=== PATIENT | male | born 1940 | race Caucasian/White ===

== ENCOUNTER 2016-04-11 09:34 | Outpatient (CLI) | payer MEDICARE, OTHER | END 2016-04-11 09:35 | disposition home or self-care (01) | DX: I10 Essential (primary) hypertension (principal) ==

== ENCOUNTER 2020-06-27 09:50 | Outpatient (CLI) | payer MEDICARE | END 2020-06-27 09:51 | disposition short-term general hospital (02) | LOC: EMS 09:50 | DX: R55 Syncope and collapse (principal) | CPT/HCPCS: A0425; A0429 ==

== ENCOUNTER 2022-10-17 12:04 | Emergency (ER) | payer MEDICARE ==
--- NOTE | 2022-10-17 12:25 | ED Physician Documentation ---
History of Present Illness - Stated complaint Stated Complaint: ALOC - Chief complaint Chief Complaint: Resp - Additonal information Additional information: 81-year-old male presents to the emergency department for evaluation of progressive weakness, subjective fevers at home. He states that over the last 2 to 3 days he has been feeling generally weaker and having a productive cough. Reports a history of bronchiectasis. Currently being followed by behavior therapist. He was started on antibiotics 2 days ago for concerns of worsening bronchiectasis. He denies chest pain. He has vomited once but not had any diarrhea. No abdominal pain. No dysuria. Past medical history: Atrial fibrillation status post watchman in August 2019, hypertension, bronchiectasis, blindness Meds: Diltiazem ER 120 daily, Lorenza statin daily, flecainide 150 mg daily, Plavix 75 mg daily, Symbicort 2 puffs twice daily, cefuroxime 500 mg p.o. twice daily for 10 days (started 10/16/2022.) box toe stitcher: Dr. Junior ([facility]) Butt Presser: Dez Mann ([facility]) Review of Systems Constitutional: reports: Fever, Fatigue Cardiac: denies: Chest pain / pressure, Palpitations Respiratory: reports: Dyspnea, Cough. denies: Hemoptysis, Wheezing GI: reports: Reviewed and negative : reports: Reviewed and negative Skin: reports: Reviewed and negative Musculoskeletal: reports: Reviewed and negative Neurologic: reports: Generalized weakness. denies: Syncope, Seizure, Headache, Head injury PD PAST MEDICAL HISTORY - Present Medications Home Medications: Ambulatory Orders Medication Instructions Recorded Confirmed Budesonide/Formoterol Fumarate 10.2 gm IH 10/17/22 [Symbicort 160-4.5 Mcg Inhaler] Cefuroxime Axetil [Cefuroxime] 500 mg PO 10/17/22 Celecoxib [Celebrex] 200 mg PO 10/17/22 Clopidogrel Bisulfate [Plavix] 75 mg PO 10/17/22 Flecainide [Tambocar] 150 mg PO Q12H 10/17/22 10/17/22 Rosuvastatin Calcium [Crestor] 5 mg PO 10/17/22 dilTIAZem HCL [Diltiazem 24Hr ER 120 mg PO 10/17/22 (Xr)] - Allergies Allergies/Adverse Reactions: Allergies Allergy/AdvReac Type Severity Reaction Status Date / Time No Known Drug Allergies Allergy Verified 10/17/22 12:18 PD ED PE NORMAL - General General: Alert and oriented X 3, No acute distress, Well developed/nourished (Appears diaphoretic) - HEENT HEENT: Atraumatic - Cardiac Cardiac: RRR, No murmur - Respiratory Respiratory: No respiratory distress. No: Clear bilaterally (Diffuse scattered rhonchi in the posterior lung donato. Room air saturations are 90%. Placed to 2 L nasal cannula with resultant rise in oxygen to 97%. No tachypnea. Appears unlabored.) - Abdomen Abdomen: Normal bowel sounds, Soft - Back Back: No CVA TTP - Derm Derm: Normal color, Warm and dry, No rash - Extremities Extremities: No deformity - Neuro Neuro: Alert and oriented X 3, prop setter 2-12 intact Eye Opening: Spontaneous Motor: Obeys Commands Verbal: Oriented GCS Score: 15 Results - Vitals Vitals: Vital Signs - 24 hr 10/17/22 10/17/22 10/17/22 12:18 13:07 13:36 Temperature 37.8 C Heart Rate 100 91 91 Respiratory 18 25 H 19 Rate Blood Pressure 128/74 110/68 111/74 O2 Saturation 90 L 91 L 94 10/17/22 14:08 Temperature 99.1 C H Heart Rate 90 Respiratory 22 Rate Blood Pressure 117/76 O2 Saturation 95 Oxygen O2 Source Room air - EKG (time done) 1212 EKG releavant findings:: EKG personally interpreted by author of this note. Relevant findings are: Rate: Rate (enter#) (99) Rhythm: NSR [place]: Other (LAFB) QRS: Normal Ischemia: Non specific changes Compare to prior EKG: Old EKG unavailable Computer interpretation: Agree with computer - Labs Labs: Laboratory Tests 10/17/22 10/17/22 10/17/22 12:31 12:33 12:33 WBC 15.9 H RBC 3.91 L Hgb 10.8 L Hct 33.1 L MCV 84.7 MCH 27.6 MCHC 32.6 RDW 13.8 Plt Count 242 MPV 9.8 Neut # (Auto) 14.8 H Lymph # (Auto) 0.3 L [place] # (Auto) 0.5 Eos # (Auto) 0.0 Baso # (Auto) 0.1 Absolute Nucleated RBC 0.00 Nucleated RBC % 0.0 Bld Gas Analysis Time Sample Site ABG pH ABG pCO2 ABG pO2 ABG HCO3 ABG Total CO2 ABG O2 Saturation ABG Base Excess Klaus Test Room Air Sodium 138 Potassium 3.9 Chloride 107 Carbon Dioxide 22 Anion Gap 9.0 BUN 25 H Creatinine 1.4 H Estimated GFR (MDRD) 49 L Glucose 107 H Lactic Acid Calcium 8.8 Total Bilirubin 0.8 AST 18 ALT 17 Alkaline Phosphatase 82 Total Protein 7.2 Albumin 3.5 Globulin 3.7 Albumin/Globulin Ratio 0.9 L Nasal Adenovirus (PCR) NOT DETECTED Nasal B. parapertussis DNA (PCR) NOT DETECTED Nasal Coronavir 229E PCR NOT DETECTED Nasal Coronavir HKU1 PCR NOT DETECTED Nasal Coronavir NL63 PCR NOT DETECTED Nasal Coronavir OC43 PCR NOT DETECTED Nasal Enterovir/Rhinovir PCR NOT DETECTED Nasal Influenza B PCR NOT DETECTED Nasal Influenza A PCR NOT DETECTED Nasal Parainfluen 1 PCR NOT DETECTED Nasal Parainfluen 2 PCR NOT DETECTED Nasal Parainfluen 3 PCR NOT DETECTED Nasal Parainfluen 4 PCR NOT DETECTED Nasal RSV (PCR) NOT DETECTED Nasal B.pertussis DNA PCR NOT DETECTED Nasal C.pneumoniae (PCR) NOT DETECTED Chance Human Metapneumo PCR NOT DETECTED Nasal M.pneumoniae (PCR) NOT DETECTED Nasal SARS-CoV-2 (PCR) NOT DETECTED 10/17/22 10/17/22 12:33 13:40 WBC RBC Hgb Hct MCV MCH MCHC RDW Plt Count MPV Neut # (Auto) Lymph # (Auto) [place] # (Auto) Eos # (Auto) Baso # (Auto) Absolute Nucleated RBC Nucleated RBC % Bld Gas Analysis Time 1340 Sample Site RIGHT RADIAL ABG pH 7.50 H ABG pCO2 26 L ABG pO2 98 ABG HCO3 19.6 L ABG Total CO2 20.4 L ABG O2 Saturation 98 ABG Base Excess -2.5 L Klaus Test POSITIVE Room Air YES Sodium Potassium Chloride Carbon Dioxide Anion Gap BUN Creatinine Estimated GFR (MDRD) Glucose Lactic Acid 1.2 Calcium Total Bilirubin AST ALT Alkaline Phosphatase Total Protein Albumin Globulin Albumin/Globulin Ratio Nasal Adenovirus (PCR) Nasal B. parapertussis DNA (PCR) Nasal Coronavir 229E PCR Nasal Coronavir HKU1 PCR Nasal Coronavir NL63 PCR Nasal Coronavir OC43 PCR Nasal Enterovir/Rhinovir PCR Nasal Influenza B PCR Nasal Influenza A PCR Nasal Parainfluen 1 PCR Nasal Parainfluen 2 PCR Nasal Parainfluen 3 PCR Nasal Parainfluen 4 PCR Nasal RSV (PCR) Nasal B.pertussis DNA PCR Nasal C.pneumoniae (PCR) Chance Human Metapneumo PCR Nasal M.pneumoniae (PCR) Nasal SARS-CoV-2 (PCR) - Rads (name of study) cxr Relevant Findings:: Final report received (Diffuse interstitial prominence with patchy ill-defined airspace opacities of the left mid and lower lung zones and right lung base. Findings may represent infectious and/or inflammatory process. No focal consolidation seen) CT chest Relevant Findings:: Final report received (Moderate left greater than right bronchiectasis involving bilateral lower lobes and inferior left lower lobe. The changes appear to be somewhat tree-in-bud distribution are likely infectious or inflammatory. Findings may represent sequelae of chronic aspiration.) PD Medical Decision Making - ED course Complexity details: reviewed results, re-evaluated patient, d/w patient, d/w family ED course: 81-year-old male who has a history of bronchiectasis presents to the emergency department after the family found him at home with a fever, altered mental status and difficulty breathing. The patient is followed by pulmonology at [facility] and recently i.e. yesterday started on cefpodoxime for concerns of worsening bronchiectasis. He reports that he does daily pulmonary toileting with pulmonary drainage. Here in the emergency department on presentation he was alert and well- appearing. He is oriented to person place time. He is blind. Vital signs were without fever, tachycardia or hypotension. I did obtain CBC, electrolytes blood cultures x2 and a respiratory PCR. Per my interpretation there is some moderate leukocytosis White blood cell count of 16,000. No worrisome anemia. Electrolytes show preserved renal function though he is mildly dehydrated with a BUN of 24 and a creatinine of 1.4. For this the patient was administered 1 L of IV fluids here in the ER. Respiratory PCR panel was Negative. Chest x-ray did suggest left lower lobe infiltrates as interpreted by the radiologist. However patient required no supplemental oxygenation and was not hypoxemic. An ABG was also within normal parameters. Subsequently a CT of the chest was completed which does show bronchiectasis involving the lower lobes with left greater than right. I discussed with the patient and his and daughter at the bedside the etiology of history and symptoms. Given chronic bronchiectasis without the requirement of supplemental oxygenation we discussed the possibility of observation admission versus discharge home. The family elected to be discharged home if the patient was able to ambulate easily which occurred here in the ER. I discussed with him however that he is at higher risk for complications given the bronchiectasis as well as his age and should his fevers fail to improve over the next several days, he have any respiratory difficulty or any other emergent concerns he would return immediately to the ER. This time he is discharged home. He will continue on the cefpodoxime started by his behavior therapist. A report of the CT was given to the family to follow-up with pulmonary. Departure - Departure Disposition: , Self Care Clinical Impression: Bronchiectasis Qualifiers: Bronchiectasis type: with acute exacerbation Qualified Code(s): J47.1 - Bronchiectasis with (acute) exacerbation Condition: Stable Comments: Alex you are seen today in the emergency department because at home you developed a high fever and then Stopped breathing. Your labs today showed a mild white blood cell count elevation of 16,000. Here in the emergency department your oxygen levels have been normal and your ABG showed no worrisome hypoxemia. A CT of the chest did show bronchiectasis involving the left lung greater than the right. At this time you are stable for discharge from the emergency department. Please continue the cefpodoxime started by your behavior therapist. If you find that over the next several days your symptoms or not improving, you have fevers that persist daily for 4 more days, you have any difficulty breathing or fainting episodes you do need to return immediately to the ER. I recommend that you continue your pulmonary toileting at home. Please discuss your CT results with your behavior therapist. They may elect to repeat imaging in several months to ensure that the imaging has improved.
--- NOTE | 2022-10-17 12:38 | XRAY Report ---
PROCEDURE: Chest 1 View X-Ray INDICATIONS: Sepsis TECHNIQUE: One view of the chest was acquired. COMPARISON: None. FINDINGS: Surgical changes and devices: None. Lungs and pleura: Diffuse interstitial prominence more pronounced on the left. Ill-defined airspace opacities of the left mid and lower lung zones and right lung base. No focal consolidation. No pneumo thorax. No substantial pleural effusion. Mediastinum: Mediastinal contours appear normal. Heart size is normal. Bones and chest wall: No suspicious bony lesions. Overlying soft tissues appear unremarkable. IMPRESSION: Diffuse interstitial prominence with patchy ill-defined airspace opacities of the left mid and lower lung zones and right lung base. Findings may represent an infectious or inflammatory process. No foca l consolidation seen. Reviewed by: Roberto De La Rosa MD on 10/17/2022 11:37 AM GIANFRANCO Approved by: Roberto De La Rosa MD on 10/17/2022 11:37 AM GIANFRANCO Station ID: [id number]
[2022-10-17 12:40] LABS: BASOPHILS # (AUTO) 0.1 10^3/uL (0.0-0.1); BASOPHILS % (AUTO) 0.4 %; EOSINOPHILS % (AUTO) 0.1 %; HCT - HEMATOCRIT 33.1 % (42.0-52.0); HGB - HEMOGLOBIN 10.8 g/dL (14.0-18.0); LYMPHOCYTES # (AUTO) 0.3 10^3/uL (1.5-3.5); LYMPHOCYTES % (AUTO) 1.9 %; MEAN CORPUSCULAR HEMOGLOBIN 27.6 pg (27.0-31.0); MEAN CORPUSCULAR HGB CONC 32.6 g/dL (32.0-36.0); MEAN CORPUSCULAR VOLUME 84.7 fL (80.0-94.0); MEAN PLATELET VOLUME 9.8 fL (7.4-11.4); MONOCYTES # (AUTO) 0.5 10^3/uL (0.0-1.0); MONOCYTES % (AUTO) 3.2 %; NEUTROPHILS # (AUTO) 14.8 10^3/uL (1.5-6.6); NEUTROPHILS % (AUTO) 93.5 %; PLT - PLATELET COUNT 242 10^3/uL (130-450); RED BLOOD COUNT 3.91 10^6/uL (4.70-6.10); RED CELL DISTRIBUTION WIDTH 13.8 % (12.0-15.0); WHITE BLOOD COUNT 15.9 x10^3/uL (4.8-10.8)
[2022-10-17 12:51] LABS: ALBUMIN 3.5 g/dL (3.2-5.5); ALBUMIN/GLOBULIN RATIO 0.9 (1.0-2.2); BILIRUBIN,TOTAL 0.8 mg/dL (0.2-1.0); CALCIUM 8.8 mg/dL (8.5-10.3); CREATININE 1.4 mg/dL (0.6-1.2); POTASSIUM 3.9 mmol/L (3.5-5.0); TOTAL PROTEIN 7.2 g/dL (6.7-8.2)
[2022-10-17] MEDS ORDERED: ONDANSETRON 4 MG/2 ML VIAL IVP STA (13:01)
[2022-10-17] MEDS ORDERED: SODIUM CHLORIDE 0.9% 1,000 ML IV STA (13:03)
[2022-10-17] MEDS ORDERED: iohexoL-300 100 ML VIAL ONE (13:14)
[2022-10-17 13:34] LABS: B. PARAPERTUSSIS- RESP PCR PAN NOT DETECTED; B. PERTUSSIS- RESP PCR PANEL NOT DETECTED; C. PNEUMONIAE- RESP PCR PANEL NOT DETECTED; CORONAVIRUS 229E-RESP PCR NOT DETECTED; CORONAVIRUS HKU1-RESP PCR NOT DETECTED; CORONAVIRUS NL63-RESP PCR NOT DETECTED; CORONAVIRUS OC43-RESP PCR NOT DETECTED; HUMAN METAPNEUMOVIRUS NOT DETECTED; INFLUENZA A- RESP PCR PANEL NOT DETECTED; INFLUENZA B - RESP PCR PANEL NOT DETECTED; M. PNEUMONIAE- RESP PCR PANEL NOT DETECTED; PARAINFLUENZA VIRUS 1 NOT DETECTED; PARAINFLUENZA VIRUS 2 NOT DETECTED; PARAINFLUENZA VIRUS 3 NOT DETECTED; PARAINFLUENZA VIRUS 4 NOT DETECTED; RHINOVIRUS/ENTEROVIRUS NOT DETECTED; RSV- RESP PCR PANEL NOT DETECTED; SARS-CoV-2 -RESP PCR PANEL NOT DETECTED
[2022-10-17 13:49] LABS: ABG BASE EXCESS -2.5 mmol/L (-2.0-3.0); ABG HCO3 19.6 mmol/L (22.0-26.0); ABG OXYGEN SATURATION 98 % (94-98); ABG PCO2 26 mmHg (34-45); ABG PO2 98 mmHg (80-100); ABG TCO2 20.4 MMOL/L (21.0-29.0); ALLEN TEST POSITIVE
[2022-10-17] MEDS ORDERED: iohexoL-300 100 ML VIAL IVP ONE (14:41)
--- NOTE | 2022-10-17 15:04 | CT Report ---
PROCEDURE: CHEST W INDICATIONS: hx of bronchectiasis CONTRAST: 100ml omni 300 TECHNIQUE: After the administration of intravenous contrast, 1 mm axial images were acquired from the pulmonary apices through the posterior costophrenic angles. Axial 5 mm soft tissue kernel reconstructions were performed as well as 8 mm axial MIP and coronal and sagittal 5 mm reformations. For radiation dose reduction, the following was used: automated exposure control, adjustment of mA and/or kV according to patient size. COMPARISON: Chest radiograph from earlier same day FINDINGS: Image quality: Diagnostic. Lungs and pleura: Bilateral left worse than right moderate bronchiectasis involving the inferior left upper lobe, left lower lobe, and medial right lower lobe. Mild airway thickening. Peripheral ill-def ined nodular opacities predominantly involving the inferior left upper lobe and posterior left lower lobe. Similar findings noted in the dependent portions of the right lower lobe. Patchy consolidations of the right lung base. No pneumothorax or substantial pleural effusion. No septal thickening or nod ularity. Mediastinum: Heart size is borderline enlarged. No pericardial effusion. No large vessel abnormality. No mediastinal adenopathy by size criteria. Atherosclerosis. Chest wall and lower neck: Thyroid is unremarkable. No axillary or supraclavicular adenopathy by size . Bones: No aggressive osseous abnormality. No acute compression fracture. Levocurvature of the thoraci c spine. Upper Abdomen: Large bilateral renal cysts incompletely imaged. Small hiatal hernia. IMPRESSION: Moderate left greater than right bronchiectasis involving the bilateral lower lobes and inferior left lower lobe with associated inflammatory changes and peripheral nodular consolidations. These appear to be somewhat tree-in-bud distribution and are likely infectious or inflammatory in etiology. Findin gs may represent sequela of chronic aspiration. Recommend short interval follow-up chest CT in 3 months to document stability versus resolution of fi ndings. Reviewed by: Roberto De La Rosa MD on 10/17/2022 2:03 PM GIANFRANCO Approved by: Roberto De La Rosa MD on 10/17/2022 2:03 PM GIANFRANCO Station ID: [id number]
[2022-10-17 15:56] VITALS: BP 116/74
== END 2022-10-17 15:55 | disposition home or self-care (01) ==
LOC: EDUNIT# → ED 12:04
DX: J47.1 Bronchiectasis with (acute) exacerbation (principal); I48.91 Unspecified atrial fibrillation; I10 Essential (primary) hypertension; Z79.02 Long term (current) use of antithrombotics/antiplatelets; Z79.51 Long term (current) use of inhaled steroids; Z79.899 Other long term (current) drug therapy; Z20.822 Contact with and (suspected) exposure to COVID-19
CPT/HCPCS: 36415; 36600; 71045; 71260; 80053; 82803; 83605; 85025; 87040; 87150; 87181; 87633; 93005; 96374; 99284; 99285; Q9967

== ENCOUNTER 2022-10-18 03:28 | Inpatient (IN) | payer MEDICARE ==
--- NOTE | 2022-10-18 03:35 | ED Physician Documentation ---
History of Present Illness - Stated complaint Stated Complaint: FLLW UP W/ DOCTOR - Chief complaint Chief Complaint: General - History obtained from History obtained from: Patient, Family - Additonal information Additional information: HPI is from patient. Patient was treated and released from this emergency department yesterday. He presented yesterday for subjective fevers over the past 2 to 3 days. He did not take his temperature at home, and denies chills, sweats. It is difficult to ascertain what led to him concluding that he was having fevers, but he does describe 2 to 3 days of episodic generalized weakness and overall malaise.Is diagnoses include bronchiectasis, and he has cefuroxime available for refill at all times with instruction to take 8 course of cefuroxime whenever he feels his symptoms related to his bronchiectasis are worsening. Thus, the patient did refill his cefuroxime 3 days ago, and has been taking this medication without feeling any improvement in his weakness and malaise. When he was in the emergency department yesterday, his chief complaint did include some difficulty breathing. On my HPI alexia, he says he does not feel his shortness of breath and his cough are particularly worse than baseline. He does not use oxygen at home. He does take Zithromax 3 times per week due to the bronchiectasis. Testing yesterday revealed elevated white blood cell count and CT chest was consistent with pneumonia. He was eventually discharged home from the emergency department. A few hours prior to alexia's arrival, ED RN received a call from the lab that 2 out of 2 blood cultures performed yesterday on this patient were positive for gram negative bacilli. I thus asked the ED RN to contact the patient and advised him to come back to the emergency department. In the interim, the lab was able to identify the bacteria in both cultures as Klebsiella oxytoca Review of Systems Constitutional: reports: Fever (subjective at home; yesterday during ED stay Tmax 100), Fatigue Cardiac: reports: Reviewed and negative Respiratory: reports: Dyspnea, Cough. denies: Hemoptysis GI: reports: Nausea. denies: Abdominal Pain, Vomiting : denies: Dysuria, Frequency Neurologic: reports: Generalized weakness PD PAST MEDICAL HISTORY - Past Medical History Past Medical History: Yes Cardiovascular: Atrial fibrillation Respiratory: Other (bronchiectasis) - Past Surgical History Past Surgical History: Yes Cardiovascular: Other (Watchman) - Present Medications Home Medications: Ambulatory Orders Medication Instructions Recorded Confirmed Budesonide/Formoterol Fumarate 10.2 gm IH Q4HR PRN 10/17/22 10/18/22 [Symbicort 160-4.5 Mcg Inhaler] Cefuroxime Axetil [Cefuroxime] 500 mg PO BID 10/17/22 10/18/22 Celecoxib [Celebrex] 200 mg PO DAILY 10/17/22 10/18/22 Clopidogrel Bisulfate [Plavix] 75 mg PO DAILY 10/17/22 10/18/22 Flecainide [Tambocar] 150 mg PO Q12H 10/17/22 10/18/22 Rosuvastatin Calcium [Crestor] 5 mg PO DAILY 10/17/22 10/18/22 dilTIAZem HCL [Diltiazem 24Hr ER 120 mg PO DAILY 10/17/22 10/18/22 (Xr)] - Allergies Allergies/Adverse Reactions: Allergies Allergy/AdvReac Type Severity Reaction Status Date / Time No Known Drug Allergies Allergy Verified 10/18/22 03:36 PD ED PE NORMAL - Vitals Vital signs reviewed: Yes - General General: Alert and oriented X 3, No acute distress, Well developed/nourished - HEENT HEENT: Moist mucous membranes - Neck Neck: Supple, no meningeal sign - Cardiac Cardiac: RRR - Respiratory Respiratory: No respiratory distress, Other (scattered rhonchi but no wheezing and good air movement) - Abdomen Abdomen: Soft, Non tender Results - Vitals Vitals: Vital Signs - 24 hr 10/18/22 10/18/22 10/18/22 03:33 04:11 05:27 Temperature 36.6 C Heart Rate 80 72 70 Respiratory 16 20 19 Rate Blood Pressure 128/72 120/78 117/66 O2 Saturation 98 97 95 If not protocol : Oxygen Flow, liters/minute 10/18/22 10/18/22 05:42 06:51 Temperature 36.8 C Heart Rate 110 H 69 Respiratory 21 19 Rate Blood Pressure 140/86 H 104/63 O2 Saturation 95 96 If not protocol 2 : Oxygen Flow, liters/minute Oxygen O2 Source Room air - Labs Labs: Laboratory Tests 10/18/22 10/18/22 10/18/22 03:54 03:54 04:06 WBC 18.4 H RBC 3.69 L Hgb 10.1 L Hct 31.5 L MCV 85.4 MCH 27.4 MCHC 32.1 RDW 14.0 Plt Count 234 MPV 10.7 Neut # (Auto) Not Reportable Lymph # (Auto) Not Reportable [place] # (Auto) Not Reportable Eos # (Auto) Not Reportable Baso # (Auto) Not Reportable Absolute Nucleated RBC Not Reportable Total Counted 100 Band Neuts % (Manual) 2 Abnorm Lymph % (Manual) 0 Nucleated RBC % Not Reportable Neutrophils # (Manual) 14.5 H Lymphocytes # (Manual) 2.0 Monocytes # (Manual) 1.7 H Eosinophils # (Manual) 0.2 Basophils # (Manual) 0.0 Differential Comment MANUAL DIFFERENTIAL Platelet Estimate NORMAL (130-450,000) RBC Morph Micro Appear NORMAL APPEARANCE Sodium 136 Potassium 4.1 Chloride 103 Carbon Dioxide 23 Anion Gap 10.0 BUN 28 H Creatinine 1.6 H Estimated GFR (MDRD) 42 L Glucose 111 H Lactic Acid 0.9 Calcium 8.4 L Total Bilirubin 0.5 AST 18 ALT 18 Alkaline Phosphatase 73 Total Protein 6.5 L Albumin 3.2 Globulin 3.3 Albumin/Globulin Ratio 1.0 Lipase 27 Urine Color Urine Clarity Urine pH Ur Specific [place] Urine Protein Urine Glucose (UA) Urine Ketones Urine Occult Blood Urine Nitrite Urine Bilirubin Urine Urobilinogen Ur Leukocyte Esterase Urine RBC Urine WBC Ur Squamous Epith Cells Urine Bacteria Ur Microscopic Review Urine Culture Comments 10/18/22 05:39 WBC RBC Hgb Hct MCV MCH MCHC RDW Plt Count MPV Neut # (Auto) Lymph # (Auto) [place] # (Auto) Eos # (Auto) Baso # (Auto) Absolute Nucleated RBC Total Counted Band Neuts % (Manual) Abnorm Lymph % (Manual) Nucleated RBC % Neutrophils # (Manual) Lymphocytes # (Manual) Monocytes # (Manual) Eosinophils # (Manual) Basophils # (Manual) Differential Comment Platelet Estimate RBC Morph Micro Appear Sodium Potassium Chloride Carbon Dioxide Anion Gap BUN Creatinine Estimated GFR (MDRD) Glucose Lactic Acid Calcium Total Bilirubin AST ALT Alkaline Phosphatase Total Protein Albumin Globulin Albumin/Globulin Ratio Lipase Urine Color YELLOW Urine Clarity HAZY Urine pH 5.0 Ur Specific [place] 1.020 Urine Protein 30 H Urine Glucose (UA) NEGATIVE Urine Ketones NEGATIVE Urine Occult Blood TRACE-INTA Urine Nitrite POSITIVE H Urine Bilirubin NEGATIVE Urine Urobilinogen 0.2 (NORMAL) Ur Leukocyte Esterase NEGATIVE Urine RBC 0-5 Urine WBC 6-10 H Ur Squamous Epith Cells RARE Squamous Urine Bacteria Few Ur Microscopic Review INDICATED Urine Culture Comments INDICATED PD Medical Decision Making - ED course Complexity details: reviewed old records, reviewed results, re-evaluated patient, considered differential, d/w patient, d/w family ED course: Patient returns to the emergency department after being treated and released yesterday, returns due to 2 out of 2 blood cultures positive for Klebsiella oxytoca. His white blood cell count is elevated, higher compared to yesterday (18.4, up from 15.9 yesterday). BUN 28, creatinine 1.6. Urinalysis is positive for nitrates, and 6-10 white blood cells per high-power field on microscopy. Lactate is normal (0.9) and he is normotensive. He is given 2 g Rocephin IV. Jesus wang's control panel assembler and aircraft parts assembler are at [facility]. As there are no beds available at [facility], [facility] is contacted but they have no beds available. At this point, I think it would be reasonable to make the patient to [facility] later today provided a bed becomes available. Thus, care of this patient is turned over to the oncoming ED physician (Dr. Patel) at end of my shift pending bed availability.
[2022-10-18 04:04] LABS: BASOPHILS % (AUTO) 0.3 %
[2022-10-18 04:06] LABS: EOSINOPHILS % (AUTO) 0.5 %; HCT - HEMATOCRIT 31.5 % (42.0-52.0); HGB - HEMOGLOBIN 10.1 g/dL (14.0-18.0); LYMPHOCYTES % (AUTO) 6.8 %; MEAN CORPUSCULAR HEMOGLOBIN 27.4 pg (27.0-31.0); MEAN CORPUSCULAR HGB CONC 32.1 g/dL (32.0-36.0); MEAN CORPUSCULAR VOLUME 85.4 fL (80.0-94.0); MEAN PLATELET VOLUME 10.7 fL (7.4-11.4); MONOCYTES % (AUTO) 11.7 %; NEUTROPHILS % (AUTO) 80.1 %; PLT - PLATELET COUNT 234 10^3/uL (130-450); RED BLOOD COUNT 3.69 10^6/uL (4.70-6.10); WHITE BLOOD COUNT 18.4 x10^3/uL (4.8-10.8)
[2022-10-18 04:09] LABS: ABNORMAL LYMPHS % (MANUAL) 0 %
[2022-10-18 04:14] LABS: ALBUMIN 3.2 g/dL (3.2-5.5); BILIRUBIN,TOTAL 0.5 mg/dL (0.2-1.0); CALCIUM 8.4 mg/dL (8.5-10.3); CREATININE 1.6 mg/dL (0.6-1.2); POTASSIUM 4.1 mmol/L (3.5-5.0); TOTAL PROTEIN 6.5 g/dL (6.7-8.2)
[2022-10-18 04:26] LABS: BAND NEUTROPHILS % (MANUAL) 2 %; DIFFERENTIAL COMMENT MANUAL DIFFERENTIAL; EOSINOPHILS # (MANUAL) 0.2 10^3/uL (0-0.7); LYMPHOCYTES % (MANUAL) 11 %; MONOCYTES # (MANUAL) 1.7 10^3/uL (0.0-1.0); NEUTROPHILS # (MANUAL) 14.5 10^3/uL (1.5-6.6); PLATELET ESTIMATE, MANUAL NORMAL (130-450,000) (NORMAL); RBC MORPHOLOGY (MULTIPLE) NORMAL APPEARANCE (NORMAL)
[2022-10-18 05:45] LABS: BILIRUBIN,URINE NEGATIVE (NEGATIVE); GLUCOSE, URINE (UA) NEGATIVE (NEGATIVE); KETONES,URINE (UA) NEGATIVE (NEGATIVE); LEUKOCYTE ESTERASE, URINE NEGATIVE (NEGATIVE); NITRITE,URINE POSITIVE (NEGATIVE); OCCULT BLOOD,URINE TRACE-INTA (NEGATIVE); PROTEIN,URINE 30 mg/dL (NEGATIVE); UROBILINOGEN,URINE 0.2 (NORMAL) E.U./dL (NORMAL)
[2022-10-18 05:49] LABS: CLARITY,URINE HAZY (CLEAR)
[2022-10-18 05:53] LABS: BACTERIA,URINE Few /HPF (None Seen); RBC,URINE 0-5 /HPF (0-5); SQUAMOUS EPITHELIAL CELL,UR RARE Squamous (<= Few)
[2022-10-18] MEDS ORDERED: cefTRIAXone 2 GM VIAL IVP STA (06:04)
[2022-10-18] MEDS ORDERED: SODIUM CHLORIDE FLUSH 0.9% 10 ML SYRINGE IVP PRN (12:49)
[2022-10-18] MEDS ORDERED: ONDANSETRON 4 MG/2 ML VIAL IVP PRN (12:49)
[2022-10-18] MEDS ORDERED: ACETAMINOPHEN 325 MG TABLET PO PRN (12:49)
--- NOTE | 2022-10-18 13:47 | ED Physician Documentation ---
ED Addendum - Addendum Addendum: 10/18/22 13:44 Care of the patient was assumed on change of shift. The patient is comfortable here without any complaints. No fevers here. He did have 2 positive blood cultures showing Klebsiella. He has apparent pneumonia on imaging previously. Urinalysis today showed positive nitrites. We will culture it as well. Consider possible source from the Klebsiella either respiratory or urinary tract. He had been given ceftriaxone which is an appropriate antibiotic for this. At the time of shift change, there were no hospital beds available. Discharges were expected later this morning or early afternoon. Hospital bed did become available and I talked with the hospitalist who will place the patient in for appropriate treatment. Disposition: The patient is admitted to the hospital in stable condition. Diagnoses: 1. Acute bacteremia due to Klebsiella 2. Pneumonia 3. Pyuria
--- NOTE | 2022-10-18 13:51 | HISTORY & PHYSICAL EXAMINATION ---
History of Present Illness - Admitted From Admitted From:: ED - History Obtained From History obtained from: ED provider - History of Present Illness HPI Comment/Other: This is a an 81-year-old male with a history of being legally blind, has a history of atrial fibrillation and has a Watchman device implanted in 2019, and is followed by Dr. Garg of Cardiology. He has a history of bronchiectasis since being a young man and is followed by Dr. Saldana from Pulmonary. The patient has available cefuroxime to take a course, if he should get an acute bronchiectasis exacerbation. Three days ago he developed a cough and weakness and was more weak and confused. He did start the cefuroxime then. He thought he was having fevers, did not measure his temperature. With 2 days of these symptoms he came to the emergency room yesterday and was found to have adequate saturations, was not tachypneic, had normal vital signs, white blood count 16, BUN 25, creatinine 1.4, normal Lactic acid level, and a chest x-ray that showed bilateral bronchiectasis left greater than right. Patient was offered to be hospitalized brought in in observation status to start stronger antibiotics. He declined and wanted to go home. He was advised to continue with the same cefuroxime that he had already started. Later that night his blood cultures that were drawn, 2 out of 2 returned positive and the ER staff called him back to be hospitalized. He returned today. Today's labs show a higher WBC of 18.4 and higher BUN of 28, creatinine 1.6. His lactic acid is again normal. The bacteremia has been identified by PCR as being Klebsiella oxytocin. When he had been in the ER yesterday a urinalysis was also taken which was abnormal containing high nitrates and high white blood cells and culture was indicated. Therefore, the source of the bacteremia could be either pulmonary or urinary. The emergency room doctor then spoke to me about this patient. He will be admitted on the Hospitalist service to treat his bacteremia. I discussed the patient's CODE BLUE wishes and he wants to be a DNR. History - Past Medical History Cardiovascular: reports: Atrial fibrillation Respiratory: reports: Other (Bronchiectasis since being a young man) Neuro: reports: Other (Legally blind) HEENT: reports: Chronic vision loss, Chronic sinusitis, Chronic hearing loss, Other Musculoskeletal: reports: Other MRSA Hx?: No Other Past Medical History: Chronic Hip Pain Bilat due to Bursitis; L ear hearing loss; Broncheictasis; Retinitis Pigmentosa - Past Surgical History Cardiovascular: reports: Other - Family & Social History Living arrangement: At home Living Situation: With family - POLST Patient has POLST: No Meds/Allgy - Home Medications Home Medications: Ambulatory Orders Medication Instructions Recorded Confirmed Budesonide/Formoterol Fumarate 2 puffs IH BID 10/17/22 10/18/22 [Symbicort 160-4.5 Mcg Inhaler] Cefuroxime Axetil [Cefuroxime] 500 mg PO BID 10/17/22 10/18/22 Celecoxib [Celebrex] 200 mg PO DAILY 10/17/22 10/18/22 Clopidogrel Bisulfate [Plavix] 75 mg PO DAILY 10/17/22 10/18/22 Flecainide [Tambocar] 150 mg PO Q12H 10/17/22 10/18/22 Rosuvastatin Calcium [Crestor] 5 mg PO DAILY 10/17/22 10/18/22 dilTIAZem HCL [Diltiazem 24Hr ER 120 mg PO DAILY 10/17/22 10/18/22 (Xr)] - Allergies Allergies/Adverse Reactions: Allergies Allergy/AdvReac Type Severity Reaction Status Date / Time No Known Drug Allergies Allergy Verified 10/18/22 03:36 Exam - Vital Signs Vital Signs: Vital Signs x48h Temp Pulse Pulse Resp BP BP Pulse Ox 10/18/22 13:35 10/18/22 13:34 36.7 C 71 16 114/61 97 10/18/22 13:12 36.7 C 10/18/22 12:23 69 22 107/72 96 10/18/22 09:21 74 21 122/70 95 10/18/22 06:51 36.8 C 69 19 104/63 96 10/18/22 05:42 110 H 21 140/86 H 95 O2 Flow Rate 10/18/22 13:35 2 10/18/22 13:34 10/18/22 13:12 10/18/22 12:23 10/18/22 09:21 10/18/22 06:51 10/18/22 05:42 2 - Physical Exam General Appearance: positive: No acute distress, Alert Eyes Bilateral: positive: Other (Both eyelids are closed) ENT: positive: No signs of dehydration Neck: positive: Nml inspection, No JVD Respiratory: positive: Rhonchi (Scattered rhonchi, mostly in the mid lung donato posteriorly) Cardiovascular: positive: No murmur, Irregularly irregular Abdomen: positive: Non-tender, Nml bowel sounds, No distention Skin: positive: Warm, Dry Extremities: positive: Non-tender, No pedal edema Neurologic/Psychiatric: positive: Oriented x3, Motor nml, Other (Blind, [place]) Conclusion/Plan - Problem List (1) Bacteremia Conclusion/Plan: When the patient came to the ER yesterday with c/o fevers at home, he had bld cx drawn. He was subsequently discharged to home from the ER. But he was called to come back to the hospital, after 2 of 2 bld cx turned pos. With his return to the ER today, he had blood cx redrawn, but no antibx were given yet. By PCR, the bacteria has been identified as Klebsiella oxytoca. We do not yet know if it is ESBL-producing or not. His source may be a UTI and not a pulm source, since he had an abn U/A suspicious for a UTI. That ur cx is still pending Plan: I will start the patient on empiric iv Cefepime 2gm tid, to treat the Klebsiella oxytoca bacteremia. And will start probiotics. Await culture sens to tailor antibx. Will get a spt cx as well. (2) UTI (urinary tract infection) Conclusion/Plan: His UA from the ER visit yesterday was also abnormal, had high nitrates, high WBCs and culture was indicated Plan: Await culture and sensitivity results to tailor antibiotics (3) Bronchiectasis Conclusion/Plan: Patient has had bronchiectasis since 3 which much younger. His EKG done in the ER yesterday (which I reviewed) shows right IVCD, suggesting some pulmonary underlying disease Patient felt like he was having an acute exacerbation of his bronchiectasis for the last few days. He has antibiotics available to take when he gets an acute exacerbation and he had been starting his Cefuroxime for the past 3 days, and was feeling no better. This suggests that possibly it was a different source c ausing the fevers and malaise, and not his bronchiectasis. His chest x-ray and CT scan which were done in the ER yesterday and do confirm bronchiectasis L>R. Plan: He will be on empiric IV antibiotics which should also cover a pulmonary source Will give Mucinex for pulmonary toilet I order as needed nebulizers Supplemental O2 has not yet been needed, and target O2 saturation will be greater than 88% in this patient with chronic lung disease We will order his usual pulmonary medications, await the home med list to be reconciled by pharmacy Qualifiers: Bronchiectasis type: with acute exacerbation Qualified Code(s): J47.1 - Bronchiectasis with (acute) exacerbation (4) Renal failure Conclusion/Plan: Patient's creatinine yesterday was 1.4 and today is 1.6, consistent with dehydration from infection. It is unclear if he has CKD, since the only prior creatinine in his chart is from 2017 and it was 2.2, perhaps that was also during a abnormal period of time Plan: We will give gentle IV hydration Avoid nephrotoxins Follow BMP daily (5) Chronic atrial fibrillation Conclusion/Plan: As per history. His reconciled med list shows that he is on Diltiazem and Flecainide. Plan: He has a Watchman device so he needs no anticoagulant or antiplatelet agent for stroke prophylaxis I will order the use of his diltiazem and home flecainide Monitor on telemetry for 1-2 days to assure there is good rate control (6) Legally blind Conclusion/Plan: As per history. Plan: PT and OT evaluations will be ordered - Lab Results Fish Bones: 10/19/22 05:32 10/19/22 05:32 - Other Other Results/Comments: Attestation: The patient is expected to be hospitalized for greater than 2 midnights, and is expected to be discharged or transferred to another facility within 96 hours: Yes.
[2022-10-18] MEDS: CEFEPIME 2 GM in SODIUM CHLORIDE 0.9% MINIBAG 100 ML IV SCH ×2 (13:55→20:06)
[2022-10-18] MEDS: CLOPIDOGREL 75 MG TABLET PO SCH (15:29)
[2022-10-18] MEDS: CELECOXIB 100 MG CAPSULE PO SCH (15:29)
[2022-10-18] MEDS: FLECAINIDE 50 MG TABLET PO SCH ×2 (15:30→22:37)
[2022-10-18] MEDS: SODIUM CHLORIDE FLUSH 0.9% 10 ML SYRINGE IVP SCH (17:38)
[2022-10-18] MEDS: BUDESONIDE 0.5 MG/2 ML NEB INH SCH (18:34)
[2022-10-18] MEDS: FORMOTEROL FUMARATE NEB 20 MCG/2 ML INH SCH (18:34)
[2022-10-18] MEDS: ATORVASTATIN 10 MG TABLET PO SCH (20:06)
[2022-10-19] MEDS: SODIUM CHLORIDE FLUSH 0.9% 10 ML SYRINGE IVP SCH ×3 (00:06→21:19)
[2022-10-19 05:53] LABS: BASOPHILS % (AUTO) 0.2 %; EOSINOPHILS % (AUTO) 0.9 %; HCT - HEMATOCRIT 29.9 % (42.0-52.0); HGB - HEMOGLOBIN 9.7 g/dL (14.0-18.0); LYMPHOCYTES % (AUTO) 13.3 %; MEAN CORPUSCULAR HEMOGLOBIN 27.7 pg (27.0-31.0); MEAN CORPUSCULAR HGB CONC 32.4 g/dL (32.0-36.0); MEAN CORPUSCULAR VOLUME 85.4 fL (80.0-94.0); MEAN PLATELET VOLUME 10.8 fL (7.4-11.4); MONOCYTES % (AUTO) 12.1 %; NEUTROPHILS % (AUTO) 72.8 %; PLT - PLATELET COUNT 221 10^3/uL (130-450); RED CELL DISTRIBUTION WIDTH 13.7 % (12.0-15.0); WHITE BLOOD COUNT 13.5 x10^3/uL (4.8-10.8)
[2022-10-19 06:08] LABS: CALCIUM 8.2 mg/dL (8.5-10.3); CREATININE 1.4 mg/dL (0.6-1.2); MAGNESIUM 1.9 mg/dL (1.7-2.8); PHOSPHORUS 3.2 mg/dL (2.5-4.6); POTASSIUM 3.5 mmol/L (3.5-5.0)
[2022-10-19 06:13] LABS: ABNORMAL LYMPHS % (MANUAL) 0 %; BAND NEUTROPHILS % (MANUAL) 0 %
[2022-10-19 06:47] LABS: DIFFERENTIAL COMMENT MANUAL DIFFERENTIAL; EOSINOPHILS # (MANUAL) 0.3 10^3/uL (0-0.7); LYMPHOCYTES # (MANUAL) 2.2 10^3/uL (1.5-3.5); LYMPHOCYTES % (MANUAL) 16 %; MONOCYTES # (MANUAL) 1.2 10^3/uL (0.0-1.0); NEUTROPHILS # (MANUAL) 9.9 10^3/uL (1.5-6.6); PLATELET ESTIMATE, MANUAL NORMAL (130-450,000) (NORMAL); PLATELET MORPHOLOGY NORMAL APPEARANCE (NORMAL); RBC MORPHOLOGY (MULTIPLE) NORMAL APPEARANCE (NORMAL); WBC MORPHOLOGY (MULTIPLE) NORMAL APPEARANCE (NORMAL)
[2022-10-19] MEDS: FORMOTEROL FUMARATE NEB 20 MCG/2 ML INH SCH ×2 (07:27→20:30)
[2022-10-19] MEDS: BUDESONIDE 0.5 MG/2 ML NEB INH SCH ×2 (07:27→20:30)
[2022-10-19] MEDS: CEFEPIME 2 GM in SODIUM CHLORIDE 0.9% MINIBAG 100 ML IV SCH ×2 (08:50→21:19)
[2022-10-19] MEDS: diltiaZEM CD 120 MG CAPSULE PO SCH (08:51)
[2022-10-19] MEDS: CELECOXIB 100 MG CAPSULE PO SCH (08:51)
[2022-10-19] MEDS: FLECAINIDE 50 MG TABLET PO SCH ×2 (08:51→21:18)
[2022-10-19] MEDS: CLOPIDOGREL 75 MG TABLET PO SCH (08:51)
[2022-10-19] MEDS: ENOXAPARIN 40 MG/0.4 ML SYRINGE SUBQ SCH (08:51)
--- NOTE | 2022-10-19 15:29 | PROVIDER PROGRESS NOTE ---
Subjective - Prog Note Date Prog Note Date: 10/19/22 Prog Note Time: 15:26 - Subjective Pt reports feeling: Improved Subjective: Pt reports feeling a little better today compared to yesterday. He's "tired but doing okay." States he slept well. He ate breakfast and lunch today without difficulty. Today was the first in a few days he was able to get up to a chair and "that felt good" he reported. States he is independent at home so it's hard not to get out of bed without assistance here. Objective - Vital Signs/Intake & Output Vital Signs: Vital Signs x48h Temp Pulse Pulse Pulse Pulse Pulse Resp 10/19/22 12:49 36.5 C 65 20 10/19/22 11:35 65 71 67 10/19/22 09:43 36.7 C 72 20 10/19/22 07:28 80 16 BP BP BP BP Pulse Ox 10/19/22 12:49 105/64 98 10/19/22 11:35 124/66 116/66 113/64 10/19/22 09:43 115/60 95 10/19/22 07:28 Intake & Output: Intake & Output 10/16/22 10/17/22 10/18/22 10/19/22 23:59 23:59 23:59 23:59 Intake Total 830 1400 Output Total 700 550 Balance 130 850 - Objective General Appearance: positive: No acute distress, Alert (Pt is laying on his right side with his eyes closed.) Eyes Bilateral: positive: No lid inflammation, Other (He keeps his eyes closed throughout the visit) Neck: positive: Nml inspection, No JVD Respiratory: positive: No respiratory distress, Breath sounds nml. negative: Wheezes, Rales, Rhonchi Cardiovascular: positive: Regular rate & rhythm, No murmur, No gallop Abdomen: positive: Non-tender, Nml bowel sounds, No distention Back: positive: Nml inspection Skin: positive: Warm, Dry Neurologic/Psychiatric: positive: Oriented x3 - Lab Results Fish Bones: 10/19/22 05:32 10/19/22 05:32 Other Labs: Lab Results x24hrs 10/19/22 10/19/22 Range/Units 05:32 05:32 WBC 13.5 H (4.8-10.8) x10^3/uL RBC 3.50 L (4.70-6.10) 10^6/uL Hgb 9.7 L (14.0-18.0) g/dL Hct 29.9 L (42.0-52.0) % MCV 85.4 (80.0-94.0) fL MCH 27.7 (27.0-31.0) pg MCHC 32.4 (32.0-36.0) g/dL RDW 13.7 (12.0-15.0) % Plt Count 221 (130-450) 10^3/uL MPV 10.8 (7.4-11.4) fL Neut # (Auto) Not Reportable Lymph # (Auto) Not Reportable [place] # (Auto) Not Reportable Eos # (Auto) Not Reportable Baso # (Auto) Not Reportable Absolute Nucleated RBC Not Reportable Total Counted 100 Band Neuts % (Manual) 0 (0 - 10) % Abnorm Lymph % (Manual) 0 % Nucleated RBC % Not Reportable Neutrophils # (Manual) 9.9 H (1.5-6.6) 10^3/uL Lymphocytes # (Manual) 2.2 (1.5-3.5) 10^3/uL Monocytes # (Manual) 1.2 H (0.0-1.0) 10^3/uL Eosinophils # (Manual) 0.3 (0-0.7) 10^3/uL Basophils # (Manual) 0.0 (0-0.1) 10^3/uL Differential Comment MANUAL DIFFERENTIAL WBC Morphology NORMAL APPEARANCE (NORMAL) Platelet Estimate NORMAL (130-450,000) (NORMAL) Platelet Morphology NORMAL APPEARANCE (NORMAL) RBC Morph Micro Appear NORMAL APPEARANCE (NORMAL) Sodium 140 (135-145) mmol/L Potassium 3.5 (3.5-5.0) mmol/L Chloride 109 (101-111) mmol/L Carbon Dioxide 22 (21-32) mmol/L Anion Gap 9.0 (6-13) BUN 24 H (6-20) mg/dL Creatinine 1.4 H (0.6-1.2) mg/dL Estimated GFR (MDRD) 49 L (>89) Glucose 106 H (70-100) mg/dL Calcium 8.2 L (8.5-10.3) mg/dL Phosphorus 3.2 (2.5-4.6) mg/dL Magnesium 1.9 (1.7-2.8) mg/dL Assessment/Plan - Problem List (1) Bacteremia Impression: When the patient came to the ER 10/17 with c/o fevers at home, he had bld cx drawn. He was subsequently discharged to home from the ER. But he was called to come back to the hospital, after 2 of 2 bld cx turned pos. With his return to the ER yesterday, he had blood cx redrawn. By PCR, the bacteria has been identified as Klebsiella oxytoca. We do not yet know if it is ESBL-producing or not. His source may be a UTI and not a pulm source. Urine cx grew gram negative rods. Repeat blood cultures negative to date. Plan: Continue IV Cefepime 2gm tid, to treat the Klebsiella oxytoca bacteremia. Continue probiotics. Sputum cx ordered. (2) UTI (urinary tract infection) Conclusion/Plan: His UA from the ER visit yesterday was also abnormal, had high nitrates, high WBCs. Urine cx grew gram negative rods. Plan: Continue IV Cefepime 2gm tid as it also covers gram negative rods. (3) Bronchiectasis Conclusion/Plan: Patient has had bronchiectasis since 3 which much younger. His EKG done in the ER 10/17 shows right IVCD, suggesting some pulmonary underlying disease Patient felt like he was having an acute exacerbation of his bronchiectasis for the last few days. He has antibiotics available to take when he gets an acute exacerbation and he had been starting his Cefuroxime for the past 3 days, and was feeling no better. This suggests that possibly it was a different source causing the fevers and malaise, and not his bronchiectasis. His chest x-ray and CT scan which were done in the ER 10/17 and do confirm bronchiectasis L>R. Oxygen saturation is 98% RA. Plan: Continue empiric IV antibiotics, which should also cover a pulmonary source. Will give Mucinex for pulmonary toilet. Continue prn nebulizers. Supplemental O2 has not yet been needed, and target O2 saturation will be greater than 88% in this patient with chronic lung disease We will order his usual pulmonary medications, await the home med list to be reconciled by pharmacy. Qualifiers: Bronchiectasis type: with acute exacerbation Qualified Code(s): J47.1 - Bronchiectasis with (acute) exacerbation (4) Renal failure Conclusion/Plan: Patient's creatinine yesterday was 1.6 and today is 1.4. BUN yesterday was 28 and today is 24. Consistent with dehydration from infection. BUN and creatinine are headed in the right direction with a downward trend. It is unclear if he has CKD, since the only prior creatinine in his chart is from 2017 and it was 2.2, perhaps that was also during a abnormal period of time Plan: Continue gentle IV hydration. Avoid nephrotoxins. Renally dose all medications. Follow BMP daily. (5) Anemia Pt's labs today indicate anemia. RBC 3.5, Hgb 9.7, Hct 29.9. Pt is not a candidate for blood transfusion according to the lab values. Plan: Daily CBC to monitor and track trends. (6) Chronic atrial fibrillation Conclusion/Plan: As per history. His reconciled med list shows that he is on Diltiazem and Flecainide. Plan: He has a Watchman device so he needs no anticoagulant or antiplatelet agent for stroke prophylaxis. Continue his home medication - his diltiazem and flecainide. Monitor on telemetry for 1-2 days to assure there is good rate control. (7) Legally blind Conclusion/Plan: As per history. Plan: PT and OT evaluations will be ordered
[2022-10-19] MEDS: ATORVASTATIN 10 MG TABLET PO SCH (21:18)
[2022-10-20] MEDS: SODIUM CHLORIDE FLUSH 0.9% 10 ML SYRINGE IVP SCH ×3 (00:15→17:08)
[2022-10-20 07:06] LABS: CALCIUM 8.3 mg/dL (8.5-10.3); CREATININE 1.4 mg/dL (0.6-1.2); POTASSIUM 3.6 mmol/L (3.5-5.0)
[2022-10-20] MEDS: BUDESONIDE 0.5 MG/2 ML NEB INH SCH ×2 (07:13→19:30)
[2022-10-20] MEDS: FORMOTEROL FUMARATE NEB 20 MCG/2 ML INH SCH ×2 (07:13→19:30)
[2022-10-20 07:15] LABS: BASOPHILS % (AUTO) 0.4 %; EOSINOPHILS # (AUTO) 0.2 10^3/uL (0.0-0.7); EOSINOPHILS % (AUTO) 1.9 %; HCT - HEMATOCRIT 30.6 % (42.0-52.0); LYMPHOCYTES # (AUTO) 1.5 10^3/uL (1.5-3.5); LYMPHOCYTES % (AUTO) 13.9 %; MEAN CORPUSCULAR HEMOGLOBIN 27.4 pg (27.0-31.0); MEAN CORPUSCULAR HGB CONC 32.7 g/dL (32.0-36.0); MEAN CORPUSCULAR VOLUME 83.8 fL (80.0-94.0); MEAN PLATELET VOLUME 11.1 fL (7.4-11.4); MONOCYTES # (AUTO) 1.5 10^3/uL (0.0-1.0); MONOCYTES % (AUTO) 13.5 %; NEUTROPHILS # (AUTO) 7.4 10^3/uL (1.5-6.6); NEUTROPHILS % (AUTO) 68.4 %; PLT - PLATELET COUNT 262 10^3/uL (130-450); RED BLOOD COUNT 3.65 10^6/uL (4.70-6.10); RED CELL DISTRIBUTION WIDTH 13.9 % (12.0-15.0); WHITE BLOOD COUNT 10.8 x10^3/uL (4.8-10.8)
[2022-10-20] MEDS: CEFEPIME 2 GM in SODIUM CHLORIDE 0.9% MINIBAG 100 ML IV SCH (08:40)
[2022-10-20] MEDS: FLECAINIDE 50 MG TABLET PO SCH ×2 (08:41→20:53)
[2022-10-20] MEDS: diltiaZEM CD 120 MG CAPSULE PO SCH (08:41)
[2022-10-20] MEDS: CELECOXIB 100 MG CAPSULE PO SCH (08:41)
[2022-10-20] MEDS: CLOPIDOGREL 75 MG TABLET PO SCH (08:42)
[2022-10-20] MEDS: ENOXAPARIN 40 MG/0.4 ML SYRINGE SUBQ SCH (08:42)
--- NOTE | 2022-10-20 14:16 | PROVIDER PROGRESS NOTE ---
Subjective - Prog Note Date Prog Note Date: 10/20/22 Prog Note Time: 14:12 - Subjective Pt reports feeling: Improved Subjective: Pt states he feels okay and has no concerns. He did mention that he wanted the side rails of his bed down and everyone has been putting them up. States he is independent at home. Reports he sometimes spits up phlegm but that is his baseline from the bronchiectesis. Also reports that he woke up multiple times at night to urinate - which is not abnormal for him. Denies fevers, chills, sore throat, rhinorrhea, congestion, dyspnea, abdominal pain, nausea, vomiting, dysuria. Objective - Vital Signs/Intake & Output Reviewed Vital Signs: Yes Vital Signs: Vital Signs x48h Temp Pulse Pulse Resp BP Pulse Ox 10/20/22 13:00 36.5 C 63 18 103/66 97 10/20/22 08:37 36.5 C 64 16 120/59 L 10/20/22 07:15 68 18 Intake & Output: Intake & Output 10/17/22 10/18/22 10/19/22 10/20/22 23:59 23:59 23:59 23:59 Intake Total 830 1890 720 Output Total 700 650 595 Balance 130 1240 125 - Objective General Appearance: positive: No acute distress, Alert, Other (Pt laying on his left side in bed with eyes closed.) Eyes Bilateral: positive: No lid inflammation Neck: positive: Nml inspection, No JVD Respiratory: positive: No respiratory distress, Breath sounds nml. negative: Wheezes, Rales, Rhonchi Cardiovascular: positive: Regular rate & rhythm, No murmur, No gallop Abdomen: positive: Non-tender, Nml bowel sounds. negative: Guarding, Rebound, Bruit Back: positive: Nml inspection Skin: positive: Color nml, No rash, Warm, Dry Neurologic/Psychiatric: positive: Oriented x3 - Lab Results Fish Bones: 10/20/22 06:13 10/20/22 06:13 Other Labs: Lab Results x24hrs 10/20/22 10/20/22 Range/Units 06:13 06:13 WBC 10.8 (4.8-10.8) x10^3/uL RBC 3.65 L (4.70-6.10) 10^6/uL Hgb 10.0 L (14.0-18.0) g/dL Hct 30.6 L (42.0-52.0) % MCV 83.8 (80.0-94.0) fL MCH 27.4 (27.0-31.0) pg MCHC 32.7 (32.0-36.0) g/dL RDW 13.9 (12.0-15.0) % Plt Count 262 (130-450) 10^3/uL MPV 11.1 (7.4-11.4) fL Neut # (Auto) 7.4 H (1.5-6.6) 10^3/uL Lymph # (Auto) 1.5 (1.5-3.5) 10^3/uL [place] # (Auto) 1.5 H (0.0-1.0) 10^3/uL Eos # (Auto) 0.2 (0.0-0.7) 10^3/uL Baso # (Auto) 0.0 (0.0-0.1) 10^3/uL Absolute Nucleated RBC 0.00 x10^3/uL Nucleated RBC % 0.0 /100WBC Sodium 138 (135-145) mmol/L Potassium 3.6 (3.5-5.0) mmol/L Chloride 108 (101-111) mmol/L Carbon Dioxide 23 (21-32) mmol/L Anion Gap 7.0 (6-13) BUN 23 H (6-20) mg/dL Creatinine 1.4 H (0.6-1.2) mg/dL Estimated GFR (MDRD) 49 L (>89) Glucose 101 H (70-100) mg/dL Calcium 8.3 L (8.5-10.3) mg/dL Assessment/Plan - Problem List (1) Bacteremia Impression: When the patient came to the ER 10/17 with c/o fevers at home, he had bld cx drawn. Discharged from ED but was called back to the hospital, after 2 of 2 bld cx turned pos. With his return to the ER, he had blood cx redrawn. By PCR, the bacteria has been identified as Klebsiella oxytoca. His source is most likely a UTI and not a pulm source. Urine cx grew Klebsiella oxytoca. Repeat blood cultures negative to date. Plan: DC'd IV Cefepime 2gm tid. Will start PO ciprofloxicin 500mg bid tonight to treat the Klebsiella oxytoca bacteremia. Anticipating discharge tomorrow. Continue probiotics. Review plan with pt and pt's at bedside. (2) UTI (urinary tract infection) Conclusion/Plan: His UA from the ER visit was also abnormal, had high nitrates, high WBCs. Urine cx grew Klebsiella oxytoca. Plan: DC'd IV Cefepime 2gm tid. Will start PO ciprofloxicin 500mg bid tonight to treat the Klebsiella oxytoca infection. Potential discharge tomorrow. (3) Bronchiectasis Conclusion/Plan: Patient has had bronchiectasis since 3 which much younger. His EKG done in the ER 10/17 shows right IVCD, suggesting some pulmonary underly ing disease Patient felt like he was having an acute exacerbation of his bronchiectasis for the last few days. He has antibiotics available to take when he gets an acute exacerbation and he had been starting his Cefuroxime for the multiple days and was feeling no better. This suggests that possibly it was a different source causing the fevers and malaise, and not his bronchiectasis. His chest x-ray and CT scan which were done in the ER 10/17 and do confirm bronchiectasis L>R. Oxygen saturation is 97% RA. Plan: Continue prn nebulizers. Supplemental O2 has not yet been needed, and target O2 saturation will be greater than 88% in this patient with chronic lung disease Continue home pulmonary medications. Qualifiers: Bronchiectasis type: with acute exacerbation Qualified Code(s): J47.1 - Bronchiectasis with (acute) exacerbation (4) Renal failure Conclusion/Plan: Patient's creatinine yesterday was 1.4 and has stayed the same - 1.4 today. BUN yesterday was 24 and today is 23. Consistent with dehydration from infection. BUN and creatinine are headed in the right direction with a downward trend. It is unclear if he has CKD, since the only prior creatinine in his chart is from 2017 and it was 2.2, perhaps that was also during a abnormal period of time Plan: Avoid nephrotoxins. Renally dose all medications. Follow BMP daily. (5) Anemia Heme labs have improved today since yesterday. Yesterday RBC Hgb 9.7, Hct 29.9. Today RBC Hgb 10.0, Hct 30.6. Heme labs are headed in the right direction with an upward trend. Pt is not a candidate for blood transfusion according to the lab values. Plan: Daily CBC to monitor and track trends. (6) Chronic atrial fibrillation Conclusion/Plan: As per history. His reconciled med list shows that he is on Diltiazem and Flecainide. Plan: He has a Watchman device so he needs no anticoagulant or antiplatelet agent for stroke prophylaxis. Continue his home medication - his diltiazem and flecainide. Monitor on telemetry for 1-2 days to assure there is good rate control. (7) Legally blind Conclusion/Plan: As per history.
[2022-10-20] MEDS: SACCHAROMYCES BOULARDII 250 MG CAPSULE PO SCH (17:08)
[2022-10-20] MEDS: CIPROFLOXACIN 250 MG TABLET PO SCH (20:50)
[2022-10-20] MEDS: ATORVASTATIN 10 MG TABLET PO SCH (20:50)
[2022-10-21] MEDS: SODIUM CHLORIDE FLUSH 0.9% 10 ML SYRINGE IVP SCH ×2 (00:01→09:25)
[2022-10-21 05:26] LABS: BASOPHILS # (AUTO) 0.1 10^3/uL (0.0-0.1); BASOPHILS % (AUTO) 0.4 %; EOSINOPHILS # (AUTO) 0.3 10^3/uL (0.0-0.7); EOSINOPHILS % (AUTO) 2.9 %; HCT - HEMATOCRIT 31.6 % (42.0-52.0); HGB - HEMOGLOBIN 10.1 g/dL (14.0-18.0); LYMPHOCYTES # (AUTO) 2.2 10^3/uL (1.5-3.5); MEAN CORPUSCULAR HEMOGLOBIN 27.7 pg (27.0-31.0); MEAN CORPUSCULAR VOLUME 86.8 fL (80.0-94.0); MEAN PLATELET VOLUME 10.8 fL (7.4-11.4); MONOCYTES # (AUTO) 1.5 10^3/uL (0.0-1.0); MONOCYTES % (AUTO) 12.6 %; NEUTROPHILS # (AUTO) 7.4 10^3/uL (1.5-6.6); NEUTROPHILS % (AUTO) 64.1 %; PLT - PLATELET COUNT 295 10^3/uL (130-450); RED BLOOD COUNT 3.64 10^6/uL (4.70-6.10); RED CELL DISTRIBUTION WIDTH 13.8 % (12.0-15.0); WHITE BLOOD COUNT 11.5 x10^3/uL (4.8-10.8)
[2022-10-21 05:35] LABS: CALCIUM 8.5 mg/dL (8.5-10.3); CREATININE 1.4 mg/dL (0.6-1.2)
[2022-10-21] MEDS: BUDESONIDE 0.5 MG/2 ML NEB INH SCH (08:54)
[2022-10-21] MEDS: FORMOTEROL FUMARATE NEB 20 MCG/2 ML INH SCH (08:55)
[2022-10-21] MEDS: CIPROFLOXACIN 250 MG TABLET PO SCH (09:24)
[2022-10-21] MEDS: FLECAINIDE 50 MG TABLET PO SCH (09:24)
[2022-10-21] MEDS: SACCHAROMYCES BOULARDII 250 MG CAPSULE PO SCH (09:24)
[2022-10-21] MEDS: CELECOXIB 100 MG CAPSULE PO SCH (09:24)
[2022-10-21] MEDS: CLOPIDOGREL 75 MG TABLET PO SCH (09:24)
[2022-10-21] MEDS: diltiaZEM CD 120 MG CAPSULE PO SCH (09:24)
[2022-10-21] MEDS: ENOXAPARIN 40 MG/0.4 ML SYRINGE SUBQ SCH (09:24)
--- NOTE | 2022-10-21 11:28 | Discharge Plan ---
Discharge Plan Problem Reviewed?: Yes Disposition: Home, Self Care Condition: Fair Prescriptions: Ciprofloxacin [Cipro] 500 mg PO BID 18 Days #72 tablet Lactobacillus Combination No.4 [Probiotic] 1 each PO DAILY #18 cap Diet: Regular Activity Restrictions: Activity as Tolerated Shower Restrictions: No Driving Restrictions: Yes Assistance Devices: Cane Instruction Topics: Urinary Tract Infec Health Concerns: You were hospitalized after you came here with weakness, chills, and fatigue and symptoms that did not get better after starting your Cefuroxime for bronchiectasis. We found that you have an infection in your bloodstream. The name of the bacteria found in your blood is Klebsiella oxytocin. This same bacteria has grown in your urine culture, therefore you had a urinary tract/prostate infection, which spread to your bloodstream. This is considered a very serious infection when it is in your bloodstream. You are being discharged home today with a prescription to take Cipro antibiotic for a 21-day total course of treatment. Part of the 21 days was already treated with IV antibiotics while you were here. The new Cipro prescription, and a prescription for a daily probiotic, were electronically sent to your [facility] pharmacy in [place]. Take these tablets until both bottles are finished. You may resume all your other pre-hospital medications. Plan of Treatment: As above. You should see your Primary Care Provider, Dr. Larkin for a hospital follow-up visit in the next 1 to 2 weeks. Care Goals: Improvement in symptoms and stabilization are the goals. Assessment: The patient understands and is agreeable with the plan. Additional Instructions or Follow Up instructions: If you have new or worsening symptoms, call your PCP for advice, or come to the ER. No Smoking: If you smoke, Please STOP! Call for help. Follow-up with: Preet Larkin MD [Physician No Access] -
--- NOTE | 2022-10-21 12:27 | DISCHARGE SUMMARY ---
Discharge Summary Admit Date: 10/18/22 Discharge Date: 10/21/22 Discharging Provider: Carlie Graham MD Primary Care Provider: MD Chaya Code Status: Do Not Attempt Resuscitation Condition at Discharge: Stable Discharge Disposition: 01 Home, Self Care - DIAGNOSES Admission Diagnoses: (1) Bacteremia (2) UTI (urinary tract infection) (3) Bronchiectasis (4) Renal failure (5) Chronic atrial fibrillation - HPI History of Present Illness: 81-year-old male with a history of being legally blind, atrial fibrillation and a Watchman device implanted in 2019 (followed by Dr. Garg of Cardiology). He has a history of bronchiectasis since being a young man and is followed by Dr. Saldana from Pulmonary. The patient has available cefuroxime to take a course, if he should get an acute bronchiectasis exacerbation. Three days ago prior to admission date - 10/18/22 he developed a cough and weakness and was more weak and confused. He started the cefuroxime at that to,e. He thought he was having fevers, did not measure his temperature. With 2 days of these symptoms he came to the emergency room 10/17/22 and was found to have adequate saturations, no tachypneic, had normal vital signs, white blood c ount 16, BUN 25, creatinine 1.4, normal Lactic acid level, and a chest x-ray that showed bilateral bronchiectasis left greater than right. Patient was offered to be hospitalized brought in observation status to start stronger antibiotics. He declined and wanted to go home. He was advised to continue with the same cefuroxime that he had already started. Later that night his blood cultures that were drawn, 2 out of 2 returned positive and the ER staff called him back to be hospitalized. He returned 10/18/2022 and labs that day showed a higher WBC of 18.4 and higher BUN of 28, creatinine 1.6. His lactic acid was again normal. The bacteremia had been identified by PCR as being Klebsiella oxyt ocin. When he had been in the ER 10/17/22, a urinalysis was also taken which was abnormal containing high nitrates and high white blood cells and culture was indicated. Therefore, the source of the bacteremia could be either pulmonary or urinary. ER MD spoke with the hospitalist and he was admitted on the Hospitalist service to treat his bacteremia. - HOSPITAL COURSE Hospital Course: (1) Bacteremia When the patient came to the ER 10/17/22 with c/o fevers at home, he had bld cx drawn. Discharged from ED but was called back to the hospital, after 2 of 2 bld cx turned pos. By PCR, the bacteria had been identified as Klebsiella oxytoca. His source was most likely a UTI and not a pulm source. Urine cx grew Klebsiella oxytoca. Upon admission pt was started on IV Cefepime 2gm tid, DC'd 10/20/22. Discharged with PO cipro 500 bid x18 days and probiotics. Repeat blood cultures negative to date. (2) UTI due to Klebsiella Species His UA from the ER visit was also abnormal, had high nitrates, high WBCs. Upon admission, pt placed on. IV Cefepime 2gm tid. Urine cx grew Klebsiella oxytoca. Discharged with PO ciprofloxicin 500mg bid x18 days for a total of 21 day course for good prostate penetration. Discharged with probiotics also. (3) Bronchiectasis, acute exacerbation Reports longstanding hx of bronchiestasis. EKG done in the ER 10/17/22 shows right IVCD, suggesting some pulmonary underlying disease. Pt began his available Cefuroxime prior to being seen because he thought he was having an acute exacerbation of bronchiectasis. When symptoms did not improve, he was seen in the ED 10/17/22. Because his symptoms did not improve, suggests that possibly it was a different source causing the fevers and malaise. His chest x-ray and CT scan which were done in the ED 10/17/22 and confirmed bronchiectasis L>R. Pt given prn nebulizers and mucinex during his hospitalization. Supplemental O2 was not needed. Continued his home pulmonary medications during his hospitalization. No changes to pulmonary medications upon discharge. (4) Renal failure Pt was found to have an elevated BUN and Cr 10/18/22. BUN=28 and Cr=1.6 on 10/18/22. During his stay, his BUN and Cr were elevated but headed in the right direction with a downward trend. It is unclear if he has CKD, since the only prior creatinine in his chart is from 2017 and it was 2.2, perhaps that was also during a abnormal period of time. On discharge date 10/21/22, BUN=22 and Cr=1.4. (5) Anemia CBC labs during his stay were consistently indicated anemia. Pt was not a candidate for blood transfusion according to the lab values (Hgb >7). Not transfused at all during his hospitalization. (6) Chronic atrial fibrillation As per history. Reconciled med list showed that he was on Diltiazem and Flecainide. Continued his home medication - diltiazem and flecainide during his hospitalization. No changes to home a-fib meds upon discharge. (7) Legally blind As per history. - ALLERGIES Allergies/Adverse Reactions: Allergies Allergy/AdvReac Type Severity Reaction Status Date / Time No Known Drug Allergies Allergy Verified 10/18/22 03:36 - MEDICATIONS Home Medications: Ambulatory Orders Medication Instructions Recorded Confirmed Budesonide/Formoterol Fumarate 2 puffs IH BID 10/17/22 10/18/22 [Symbicort 160-4.5 Mcg Inhaler] Cefuroxime Axetil [Cefuroxime] 500 mg PO BID 10/17/22 10/18/22 Celecoxib [Celebrex] 200 mg PO DAILY 10/17/22 10/18/22 Clopidogrel Bisulfate [Plavix] 75 mg PO DAILY 10/17/22 10/18/22 Flecainide [Tambocar] 150 mg PO Q12H 10/17/22 10/18/22 Rosuvastatin Calcium [Crestor] 5 mg PO DAILY 10/17/22 10/18/22 dilTIAZem HCL [Diltiazem 24Hr ER 120 mg PO DAILY 10/17/22 10/18/22 (Xr)] Ciprofloxacin [Cipro] 500 mg PO BID 18 Days #72 tablet 10/21/22 Lactobacillus Combination No.4 1 each PO DAILY #18 cap 10/21/22 [Probiotic] - PHYSICAL EXAM AT DISCHARGE General Appearance: positive: No acute distress, Alert, Other (Eating lunch in bed. ) Eyes Bilateral: positive: Other (Keeps his eyes closed throughout interaction. ) Neck: positive: Nml inspection, No JVD Respiratory: positive: No respiratory distress, Breath sounds nml Cardiovascular: positive: No murmur, No gallop, Irregularly irregular (Rate controlled. ). negative: Friction rub Abdomen: positive: Non-tender, Nml bowel sounds. 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 - TIME SPENT Time Spent in Discharge (Minutes): 45
[2022-10-21 12:46] VITALS: BP 118/69
== END 2022-10-21 12:45 | disposition home or self-care (01) | DRG 872 ==
LOC: ED 03:28 → MS2 13:14
PROVIDERS: ADMIT Internal Medicine; ATTEND Internal Medicine
DX: J18.9 Pneumonia, unspecified organism (principal); R78.81 Bacteremia; N39.0 Urinary tract infection, site not specified; J47.1 Bronchiectasis with (acute) exacerbation; I48.20 Chronic atrial fibrillation, unspecified; N19 Unspecified kidney failure; B96.89 Other specified bacterial agents as the cause of diseases classified elsewhere; D64.9 Anemia, unspecified; H54.8 Legal blindness, as defined in USA; Z66 Do not resuscitate; Z79.899 Other long term (current) drug therapy
CPT/HCPCS: 36415; 80048; 80053; 81001; 83605; 83690; 83735; 84100; 85025; 87040; 87077; 87086; 87181; 94640; 96374; 97161; 97166; 97530; 99284; 99285; A9270; J1650; J7626; 81003